=== PATIENT | male | born 1940 | race Caucasian/White ===

== ENCOUNTER 2016-06-10 11:06 | Emergency (ER) | payer OTHER ==
[2016-06-10 11:14] VITALS: RESP 16
[2016-06-10 11:50] LABS: % IMMATURE GRANULYOCYTES 0.3 % (0.0-1.1); ABSOLUTE IMMATURE GRANULOCYTES 0.03 10^3/uL (0.00-0.10); ADD DIFF? NO; ADD MORPH? NO; ADD SCAN? NO; ATYPICAL LYMPHOCYTE FLAG 0 (0-99); FRAGMENT RBC FLAG 0 (0-99); HEMATOCRIT 41.6 % (40.0-51.0); HEMOGLOBIN 14.6 g/dL (13.7-17.5); LEFT SHIFT FLG 0 (0-99); LIPEMIA HEMOLYSIS FLAG 90 (0-99); MEAN CELL HEMOGLOBIN 35.1 pg (27.9-34.1); MEAN CELL HEMOGLOBIN CONCENTR. 35.1 g/dL (32.4-36.7); MEAN PLATELET VOLUME 10.1 fL (8.7-11.7); PLATELET CLUMPS FLAG 10 (0-99); PLATELET COUNT 275 10^3/uL (150-400); RED BLOOD CELL COUNT 4.16 10^6/uL (4.40-6.38)
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
[2016-06-10 11:58] LABS: INR 1.24 (0.83-1.16); PROTIME(PATIENT) 15.6 SEC (12.0-15.0)
[2016-06-10 11:59] LABS: APTT 38.7 SEC (23.0-38.0)
[2016-06-10 12:09] LABS: ANION GAP 13 mEq/L (8-16); CALCIUM 8.6 mg/dL (8.5-10.4); CARBON DIOXIDE 21 mEq/l (22-31); CHLORIDE 107 mEq/L (97-110); CREATININE 1.1 mg/dL (0.7-1.3); GLOMERULAR FILTRATION RATE > 60; GLUCOSE 73 mg/dL (70-100); POTASSIUM 4.9 mEq/L (3.5-5.2); SODIUM 141 mEq/L (134-144)
[2016-06-10] MEDS ORDERED: IOPAMIDOL (ISOVUE-300) 100 ML BTL IV ONE (12:26)
[2016-06-10 14:23] VITALS: BP 145/99; PULSE 100; TEMP 97.3; O2SAT 95
== END 2016-06-10 14:31 | disposition home or self-care (01) ==
DX: K59.00 Constipation, unspecified (principal); I10 Essential (primary) hypertension; Z87.891 Personal history of nicotine dependence; Z79.82 Long term (current) use of aspirin
CPT/HCPCS: 74177; 99285; Q9967

== ENCOUNTER → 2016-11-05 | Outpatient (CLI) | payer OTHER | LOC: FIMAGING 08:14 | PROVIDERS: ATTEND Internal Medicine | DX: K21.9 Gastro-esophageal reflux disease without esophagitis (principal) ==

== ENCOUNTER 2017-02-07 12:57 | Day surgery (SDC) | payer OTHER ==
[2017-02-07] MEDS ORDERED: ATROPINE SULFATE 1 MG/10 ML SYR IVP ONE (13:11)
[2017-02-07] MEDS ORDERED: NS 500 ML IV ONE (13:11)
[2017-02-07] MEDS ORDERED: BENZOCAINE UNIT DOSE SPRAY HURRICAINE MM ONE (13:11)
[2017-02-07] MEDS ORDERED: fentaNYL 100 MCG/2 ML INJ IVP ONE (13:11)
[2017-02-07] MEDS ORDERED: MIDAZOLAM 2 MG/2 ML VIAL IVP ONE (13:11)
[2017-02-07 13:59] LABS: INR 1.33 (0.83-1.16); PROTIME(PATIENT) 16.5 SEC (12.0-15.0)
[2017-02-07 14:00] LABS: APTT 35.6 SEC (23.0-38.0)
[2017-02-07 14:19] LABS: ANION GAP 9 mEq/L (8-16); CALCIUM 9.6 mg/dL (8.5-10.4); CARBON DIOXIDE 25 mEq/l (22-31); CHLORIDE 102 mEq/L (97-110); CREATININE 1.1 mg/dL (0.7-1.3); GLOMERULAR FILTRATION RATE > 60; GLUCOSE 87 mg/dL (70-100); MAGNESIUM 1.8 mg/dL (1.6-2.3); POTASSIUM 4.5 mEq/L (3.5-5.2); SODIUM 136 mEq/L (134-144)
[2017-02-07] MEDS ORDERED: PROPOFOL 200 MG/20 ML VIAL ONE (14:30)
--- NOTE | 2017-02-07 14:36 | PDHPUP ---
History & Physical Update H&P update statement: This history and physical update is based on an assessment of the patient which was completed after admission or registration (within 24 hours), but prior to the surgery/procedure. H&P update: H&P reviewed & patient examined, no change in patient's condition since H&P completed
[2017-02-07] MEDS ORDERED: DABIGATRAN ETEXILATE MESYL 150 MG CAP PO ONE (14:45)
--- NOTE | 2017-02-07 14:47 | PDTEE1 ---
PRAKASH Cardioversion Procedure Procedure: electrical cardioversion Indications: atrial fibrillation Consent: signed and in chart Anticoagulation: other (Pradaxa) Procedural Details: Pads were placed in anterior-posterior position. PRAKASH probe was advanced and standard images obtained. There is no evidence of left atrial or left atrial appendage thrombus. Synchronized cardioversion attempt #1: 100J Results: normal sinus rhythm Conclusions: successful PRAKASH cardioversion
--- NOTE | 2017-02-07 14:54 | CPEKG ---
Heart Rate: 93 RR Interval: 645 P-R Interval: 180 QRSD Interval: 142 QT Interval: 416 QTC Interval: 518 P [place]: 65 QRS [place]: 60 T Wave [place]: 200 EKG Severity - ABNORMAL ECG - EKG Impression: SINUS RHYTHM EKG Impression: ATRIAL PREMATURE COMPLEX EKG Impression: IVCD, CONSIDER ATYPICAL LBBB Electronically Signed By: Gavin Christopher 07-Feb-2017 18:45:18
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
--- NOTE | 2017-02-07 15:13 | POSTANESTH ---
Post Anesthetic Evaluation Cardiovascular Status: Normal, Stable, Similar to Pre-Op Cond Respiratory Status: Normal, Stable Level of Consciousness/Mental Status: Can Participate in Eval Pain Control: Adequate, Prn Tx Ordered Nausea/Vomiting Control: Adequate, Prn Tx Ordered Complications Possibly Related to Anesthesia: None Noted
--- NOTE | 2017-02-07 16:00 | ECHO ---
[email or web address] [address] [address] Main: [phone] Fax: Transesophageal Echocardiography Name: CARLO NOLASCO MR#: [id number] Study Date: 02/07/2017 Study Time: 02:37 PM Date of : 1940 Age: 76 year(s) Height: ( ) Weight: ( ) BSA: Gender: Male Examination: PRAKASH Indication: Eval DAMASO, Pre Cardioversion Image Quality: Contrast: Requested by: Cole Medrano Heart Rate: Rhythm: BP: / Procedure Staff American Sign Language Interpreter: Jacob Lira Reading Physician: Cole Medrano Requesting Provider: PRAKASH Exam Details Conclusions: This is a limited pre cardioversion transesophageal echocardiogram. The patient was in atrial flutter at the time the study. The left atrial appendage is free of thrombus. The left atrium is moderately dilated. There is spontaneous echo contrast noted within the left atrium. Left ventricle appears to be mildly dilated with moderate to severely reduced LV systolic function. The ejection fraction is estimated at 30%. There is global hypokinesis. The right ventricle appears to be normal in size. The aortic valve is trileaflet with mild sclerosis. Following the procedure the patient was cardioverted to normal sinus rhythm. Measurements: Chambers Valvular Assessment AV/MV Valvular Assessment TV/PV Normal Normal Normal Name Value Range Name Value Range Name Value Range Additional Measurements: Findings: Left Ventricle: Moderately to severely reduced systolic function. Left Atrial Appendage: Good color flow doppler in the left atrial appendage. Normal PW-Doppler flow pattern. No thrombus in left appendage. Mitral Valve: The mitral valve is normal in appearance and function. Patient: CARLO NOLASCO Study Date: 02/07/2017 Page 1 of 2 02:37 PM Exam Comments: Proceeded with successful elective DC cardioversion.. l1n (No Signature Object) Patient: CARLO NOLASCO Study Date: 02/07/2017 Page 2 of 2 02:37 PM [id number]
--- NOTE | 2017-02-12 09:26 | CPEKG ---
Heart Rate: 128 RR Interval: 469 QRSD Interval: 140 QT Interval: 356 QTC Interval: 520 QRS [place]: 98 T Wave [place]: -62 EKG Severity - ABNORMAL ECG - EKG Impression: ATRIAL FLUTTER WITH 2:1 AV BLOCK EKG Impression: NONSPECIFIC INTRAVENTRICULAR CONDUCTION DELAY EKG Impression: BORDERLINE ST DEPRESSION, LATERAL LEADS Electronically Signed By: Hero Condon 12-Feb-2017 15:40:38
== END 2017-02-07 17:00 | disposition home or self-care (01) ==
LOC: FCATH 12:57
PROVIDERS: ATTEND Internal Medicine Cardiovascular Disease
PROC: 5A2204Z Restoration of Cardiac Rhythm, Single (ICD-10-PCS; principal; 2017-02-07)
DX: I48.91 Unspecified atrial fibrillation (principal); F10.20 Alcohol dependence, uncomplicated; I47.1 Supraventricular tachycardia; I42.9 Cardiomyopathy, unspecified; I44.7 Left bundle-branch block, unspecified; I10 Essential (primary) hypertension; G47.33 Obstructive sleep apnea (adult) (pediatric); E78.00 Pure hypercholesterolemia, unspecified
CPT/HCPCS: J0461; J2704

== ENCOUNTER → 2017-04-22 | Outpatient (CLI) | payer OTHER | LOC: FIMAGING 15:22 | PROVIDERS: ATTEND Internal Medicine Cardiovascular Disease | DX: I44.7 Left bundle-branch block, unspecified (principal); I10 Essential (primary) hypertension ==

== ENCOUNTER → 2018-04-09 | Outpatient (CLI) | payer OTHER | LOC: FIMAGING 15:01 | PROVIDERS: ATTEND Internal Medicine Interventional Cardiology | DX: Z13.89 Encounter for screening for other disorder (principal); I48.91 Unspecified atrial fibrillation; Z79.899 Other long term (current) drug therapy ==